=== PATIENT | female | born 1995 | race Caucasian/White ===

== ENCOUNTER 2021-12-11 09:53 | Inpatient (IN) ==
[2021-12-11] MEDS ORDERED: Lactated Ringers 1000 ml BAG 1,000 ML IV ONE ×2 (12:28→17:48)
[2021-12-11] MEDS ORDERED: Buffered Lidocaine 1% SYRIN 1 ml INTRADERM ONE (12:28)
[2021-12-11] MEDS ORDERED: Lactated Ringers 1000 ml BAG 1,000 ML IV SCH ×2 (13:00→18:00)
[2021-12-11 13:13] LABS: Urine Benzodiazepine Screen None Detected (None Detect); Urine Cannabinoids Screen None Detected (None Detect); Urine Opiates Screen None Detected (None Detect)
[2021-12-11 16:21] LABS: ABS Lymphocytes 1.5 10^3/ul (1.0-4.8); ABS Monocytes 0.6 10^3/ul (0-0.8); ABS Neutrophils 9.1 10^3/ul (1.5-7.7); Eosinophil % 0.3 %; Hematocrit 42 % (35-47); Hemoglobin 14.3 g/dL (12.0-16.0); Lymphocyte % 13.5 %; Mean Corpuscular HGB Conc 34 g/dL (31-36); Mean Corpuscular Hemoglobin 32 pg (27-31); Mean Corpuscular Volume 95 fL (80-97); Mean Platelet Volume 10.1 fL (7.4-10.4); Platelet Count 147 10^3/uL (150-450); Red Cell Distribution Width 14 % (10-15); White Blood Count 11.2 10^3/uL (3.5-10.8)
[2021-12-11] MEDS ORDERED: Lidocaine 2% w/ EPI 1:200,000 MPF 20 ML SDV VIAL ONE (16:32)
[2021-12-11] MEDS ORDERED: OBEPIDURAL (200 ML) 200 ML EPIDURAL ONE (16:32)
[2021-12-11] MEDS: OBEPIDURAL (200 ML) 200 ML EPIDURAL SCH (17:00)
[2021-12-11] MEDS ORDERED: Lidocaine 1% MPF 5 ML VIAL ONE (17:12)
[2021-12-11] MEDS: Phenylephrine 40 mcg/mL 10mL (400mcg) SYRINGE IV PUSH PRN ×3 (17:38→18:07)
[2021-12-11] MEDS ORDERED: Sodium Citrate/Citric Acid LIQ 15 ML UDC PO PRN (17:48)
[2021-12-11] MEDS ORDERED: Phenylephrine 40 mcg/mL 10mL (400mcg) SYRINGE IV PUSH PRN (17:48)
[2021-12-12] MEDS ORDERED: Oxytocin in LR 20,000 MILLI.UNIT/1,000 ML BAG IV ONE (03:04)
[2021-12-12] MEDS ORDERED: Witch Hazel PAD JAR TOPICAL PRN (03:24)
[2021-12-12] MEDS ORDERED: Oxytocin in LR 20,000 MILLI.UNIT/1,000 ML BAG IV SCH (03:30)
[2021-12-12] MEDS ORDERED: Lactated Ringers 1000 ml BAG 1,000 ML IV SCH (04:00)
[2021-12-12] MEDS: Dibucaine 1% OINT 28.35 GM TUBE PR PRN (05:22)
[2021-12-13] MEDS: OBEPIDURAL (200 ML) 200 ML EPIDURAL SCH (04:12)
[2021-12-13 06:33] LABS: ABS Eosinophils 0.1 10^3/ul (0-0.6); ABS Monocytes 0.7 10^3/ul (0-0.8); ABS Neutrophils 7.4 10^3/ul (1.5-7.7); Eosinophil % 1.3 %; Hematocrit 32 % (35-47); Hemoglobin 11.1 g/dL (12.0-16.0); Lymphocyte % 19.4 %; Mean Corpuscular HGB Conc 35 g/dL (31-36); Mean Corpuscular Hemoglobin 34 pg (27-31); Mean Corpuscular Volume 96 fL (80-97); Mean Platelet Volume 9.5 fL (7.4-10.4); Platelet Count 113 10^3/uL (150-450); Red Blood Count 3.29 10^6 /uL (3.70-4.87); Red Cell Distribution Width 13 % (10-15); White Blood Count 10.3 10^3/uL (3.5-10.8)
[2021-12-13] MEDS: Dibucaine 1% OINT 28.35 GM TUBE PR PRN (15:07)
[2021-12-14 08:30] VITALS: BP 108/75
== END 2021-12-14 13:19 | disposition home or self-care (01) | DRG 560 ==
LOC: MCHOBOUT 09:53 → MCHOB 11:05
PROVIDERS: ADMIT Midwife; ATTEND Midwife